=== PATIENT | male | born 1950 | race Caucasian/White ===

== ENCOUNTER 2017-06-07 10:10 | Emergency (ER) | payer OTHER ==
[2017-06-07 10:20] VITALS: O2SAT 96
[2017-06-07] MEDS ORDERED: Sodium Chloride 0.9% 1,000 ML IV STA (10:51)
--- NOTE | 2017-06-07 10:54 | ED PDOC ---
Arrival/HPI - General Chief Complaint: Flu-like Symptoms Time Seen by Provider: 06/07/17 10:50 Historian: Patient - History of Present Illness Narrative History of Present Illness (Text): 06/07/17 10:52 67yo male with no PMhx who present with complaint of generalized weakness, scratchy throat, nausea, rhinorrhea, poor appetite x2days. He denies cough, vomiting, diarrhea, abdominal pain, fever, chest pain, sick contact, travel, any other complaint. Past Medical History - Provider Review Nursing Documentation Reviewed: Yes - Psychiatric Hx Psychophysiologic Disorder: No Hx Substance Use: No Family/Social History - Physician Review Nursing Documentation Reviewed: Yes Family/Social History: Unknown Family HX Smoking Status: Never Smoked Hx Alcohol Use: No Hx Substance Use: No Allergies/Home Meds Allergies/Adverse Reactions: Allergies No Known Allergies Allergy (Verified 06/07/17 10:14) Review of Systems - Physician Review All systems were reviewed & negative as marked: Yes - Review of Systems Constitutional: Fatigue Eyes: Normal ENT: Normal Respiratory: Normal Cardiovascular: Normal Gastrointestinal: Nausea. absent: Abdominal Pain, Constipation, Diarrhea, Vomiting, Hematochezia, Hematemesis Genitourinary Male: Normal Musculoskeletal: Normal Skin: Normal Neurological: Normal Endocrine: Normal Hemo/Lymphatic: Normal Psychiatric: Normal Physical Exam Vital Signs Reviewed: Yes Vital Signs Temp Pulse Resp BP Pulse Ox 06/07/17 11:00 102.1 F H 06/07/17 10:18 98.4 F 123 H 16 108/76 96 Temperature: Afebrile Blood Pressure: Normal Pulse: Tachycardic Respiratory Rate: Normal Appearance: Positive for: Well-Appearing, Non-Toxic, Comfortable Pain Distress: None Mental Status: Positive for: Alert and Oriented X 3 - Systems Exam Head: Present: Atraumatic, Normocephalic Pupils: Present: PERRL Extroacular Muscles: Present: EOMI Conjunctiva: Present: Normal Mouth: Present: Moist Mucous Membranes Neck: Present: Normal Range of Motion Respiratory/Chest: Present: Clear to Auscultation, Good Air Exchange. No: Respiratory Distress, Accessory Muscle Use, Wheezes, Decreased Breath Sounds, Rales, Retracting, Rhonchi Cardiovascular: Present: Regular Rate and Rhythm, Normal S1, S2. No: Murmurs Abdomen: Present: Normal Bowel Sounds. No: Tenderness, Distention, Peritoneal Signs, Rebound, Guarding, McBurney's Point Tender, Rovsing's Sign Present Back: Present: Normal Inspection Upper Extremity: Present: Normal Inspection. No: Cyanosis, Edema Lower Extremity: Present: Normal Inspection. No: Edema Neurological: Present: GCS=15, CN II-XII Intact, Speech Normal Skin: Present: Warm, Dry, Normal Color. No: Rashes Psychiatric: Present: Alert, Oriented x 3, Normal Insight, Normal Concentration Medical Decision Making ED Course and Treatment: 06/07/17 12:09 Pt in ED for stated history. Febrile and tachy on presentation. His VS improved in ED with antipyretic and hydration. Rapid flu was positive. Lab was otherwise unspecific. Result was DW the pt. He will be DC home. He was advised to drink plenty of fluid and take his medication. Advised to take antipyretic every 6hrs as needed. Referred to his PMD. TRT ED for any new or worsening symptoms. - Lab Interpretations Lab Results: 06/07/17 11:15 06/07/17 11:15 Lab Results 06/07/17 11:15: PT 15.3 H, INR 1.32 H, APTT 31.2 06/07/17 11:15: Influenza Typ A,B (EIA) Pos for influenza a H 06/07/17 11:15: Sodium 138, Potassium 4.1, Chloride 100, Carbon Dioxide 27, Anion Gap 15, BUN 21, Creatinine 1.0, Est GFR ( Amer) > 60, Est GFR (Non- Af Amer) > 60, Random Glucose 124 H, Calcium 9.4, Total Bilirubin 2.9 H, AST 29 , ALT 29, Alkaline Phosphatase 55, Lactate Dehydrogenase 370, Total Creatine Kinase 148, Troponin I < 0.01, Total Protein 8.0, Albumin 4.4, Globulin 3.6, Albumin/Globulin Ratio 1.2 06/07/17 11:15: WBC 8.0, RBC 4.82, Hgb 15.0, Hct 41.4 L, MCV 85.9, MCH 31.1, MCHC 36.2, RDW 12.3, Plt Count 171, MPV 9.5, Gran % 68.1 H, Lymph % (Auto) 14.1 L, [place] % (Auto) 17.4 H, Eos % (Auto) 0.1 L, Baso % (Auto) 0.3, Gran # 5.43, Lymph # (Auto) 1.1 L, [place] # (Auto) 1.4 H, Eos # (Auto) 0.0, Baso # (Auto) 0.02 - Medication Orders Current Medication Orders: Oseltamivir Phosphate (Tamiflu Cap) 75 mg PO ONCE STA PRN Reason: Protocol Stop: 06/07/17 12:08 Discontinued Medications Acetaminophen (Tylenol 325mg Tab) 975 mg PO STAT STA Stop: 06/07/17 11:15 Last Admin: 06/07/17 11:18 Dose: 975 mg Sodium Chloride (Sodium Chloride 0.9%) 1,000 mls @ 999 mls/hr IV .Q1H1M STA Stop: 06/07/17 11:51 Last Admin: 06/07/17 11:16 Dose: 999 mls/hr eMAR Start Stop Document 06/07/17 11:16 SRE (Rec: 06/07/17 11:17 SRE [id number]) Intravenous Solution Start Date 06/07/17 Start Time 11:16 End Date 06/07/17 End time 12:15 Total Infusion Time 59 Ondansetron HCl (Zofran Inj) 4 mg IVP STAT STA Stop: 06/07/17 10:55 Last Admin: 06/07/17 11:17 Dose: 4 mg IVP Administration Document 06/07/17 11:17 SRE (Rec: 06/07/17 11:17 SRE [id number]) Charges for Administration # of IVP Administrations 1 Disposition/Present on Arrival - Present on Arrival Any Indicators Present on Arrival: No History of DVT/PE: No History of Uncontrolled Diabetes: No Urinary Catheter: No History of Decub. Ulcer: No History Surgical Site Infection Following: None - Disposition Have Diagnosis and Disposition been Completed?: Yes Diagnosis: Influenza Disposition: HOME/ ROUTINE Disposition Time: 12:15 Patient Plan: Discharge Patient Problems: Current Active Problems Problem Status Onset Influenza Acute Condition: STABLE Discharge Instructions (ExitCare): Flu, Adult (DC) Additional Instructions: Take medication and drink plenty of fluid. Rest Follow up with your doctor Return to ED for any new or worsening symptoms Prescriptions: Ibuprofen [Motrin Tab] 600 mg PO Q6 #20 tab Oseltamivir Phosphate [Tamiflu] 75 mg PO BID #10 capsule Referrals: PCP,NO [Primary Care Provider] - Follow up with primary Sesar Lazar DO [Staff Provider] - Follow up with primary Forms: [employer] (Lithuanian)
[2017-06-07 11:26] LABS: BASO # 0.02 K/mm3 (0.0-2.0); BASO % 0.3 % (0.0-3.0); EOS % 0.1 % (1.5-5.0); GRAN # 5.43 (1.4-6.5); GRAN % 68.1 % (50.0-68.0); LYMPH # 1.1 (1.2-3.4); LYMPH % 14.1 % (22.0-35.0); MEAN CELL VOLUME 85.9 fl (80.0-105.0); MEAN CORPUSCULAR HEMOGLOBIN 31.1 pg (25.0-35.0); MEAN CORPUSCULAR HGB CONC 36.2 g/dl (31.0-37.0); MEAN PLATELET VOLUME 9.5 fl (7.0-11.0); MONO # 1.4 (0.1-0.6); MONO % 17.4 % (1.0-6.0); RBC 4.82 10^6/uL (3.5-6.1); RED CELL DISTRIBUTION WIDTH 12.3 % (11.5-14.5)
[2017-06-07 11:35] LABS: ALB/GLOB RATIO 1.2 (1.1-1.8); ALBUMIN 4.4 g/dL (3.0-4.8); ALT/SGPT 29 U/L (7-56); AST/SGOT 29 U/L (17-59); BLOOD UREA NITROGEN 21 mg/dL (7-21); CALCIUM 9.4 mg/dL (8.4-10.5); GFR AFRICAN-AMERICAN > 60; GFR NON-AFRICAN AMERICAN > 60; INR 1.32 (0.93-1.08); PARTIAL THROMBOPLASTIN TIME 31.2 Seconds (25.1-36.5); PROTHROMBIN TIME 15.3 SECONDS (9.4-12.5)
[2017-06-07 11:46] LABS: TROPONIN I < 0.01 ng/mL
[2017-06-07 12:38] VITALS: BP 120/78; PULSE 84; RESP 18; TEMP 98.6
== END 2017-06-07 12:45 | disposition home or self-care (01) ==
LOC: ED 10:10
DX: J11.1 Influenza due to unidentified influenza virus with other respiratory manifestations (principal)
CPT/HCPCS: 80053; 82550; 83615; 84484; 85025; 85610; 85730; 87804; 96361; 96374; 99284; J2405; J7040